=== PATIENT | male | born 1985 | race Caucasian/White ===

== ENCOUNTER 2019-04-02 16:10 | Emergency (ER) | payer MEDICAID ==
[2019-04-02] MEDS: LIDOCAINE 2% (MDV) 20 ML INJ INJ (18:13)
[2019-04-02] MEDS: DIPHTH/TET/ACEL PERTUSS (ADULT) 0.5 ML VIAL IM* (19:31)
== END 2019-04-02 20:06 | disposition home or self-care (01) ==
LOC: FTE 16:10
DX: S61.211A Laceration without foreign body of left index finger without damage to nail, initial encounter (principal); W31.2XXA Contact with powered woodworking and forming machines, initial encounter; Y92.89 Other specified places as the place of occurrence of the external cause
CPT/HCPCS: 12001; 73140; 90715; 99283-25